=== PATIENT | male | born 1990 | race African-American/Black ===

== ENCOUNTER 2020-09-10 10:28 | Emergency (ER) | payer OTHER ==
[2020-09-10] MEDS ORDERED: ACETAMINOPHEN 325 MG TABLET (FP) PO ONE (10:36)
[2020-09-10] MEDS ORDERED: ACETAMINOPHEN 325 MG TABLET (FP) ONE (10:39)
[2020-09-10] MEDS ORDERED: DIPHTH,PERTUSS(ACELL),TET 0.5 ML DISP.SYRIN IM ONE ×2 (10:46→10:51)
[2020-09-10 10:49] VITALS: BP 135/95; PULSE 56; TEMP 97.8; BMI 25.0
== END 2020-09-10 11:00 | disposition home or self-care (01) ==
LOC: FER 10:28
PROC: 3E0234Z Introduction of Serum, Toxoid and Vaccine into Muscle, Percutaneous Approach (ICD-10-PCS; principal; 2020-09-10)
DX: S09.90XA Unspecified injury of head, initial encounter (principal); S00.91XA Abrasion of unspecified part of head, initial encounter
CPT/HCPCS: 90715; 99284-25

== ENCOUNTER 2020-09-29 15:34 | Emergency (ER) | payer OTHER ==
[2020-09-29 15:48] VITALS: BP 119/60; PULSE 60; TEMP 98.1; BMI 25.8
== END 2020-09-29 17:18 | disposition home or self-care (01) ==
LOC: FER 15:34
DX: S66.802A Unspecified injury of other specified muscles, fascia and tendons at wrist and hand level, left hand, initial encounter (principal)
CPT/HCPCS: 73110-TC-LT-FY; 73130-TC-LT-FY; 99283-25